=== PATIENT | male | born 1960 | race Caucasian/White ===

== ENCOUNTER → 2016-10-19 | Outpatient (CLI) | payer OTHER ==
--- NOTE | 2016-10-19 11:42 | DIAGNOSTIC IMAGING REPORT ---
RIGHT ANKLE 3 VIEWS HISTORY: PAIN IN RIGHT ANKLE AND JOINTS Right COMPARISON: None. FINDINGS: There is no fracture or dislocation. Medial soft tissue swelling. No underlying bony destruction. Mild vascular calcifications. A few punctate ossific densities at the medial malleolus consistent with old avulsion injuries. No radiopaque foreign bodies. IMPRESSION: Medial soft tissue swelling. No acute fractures. Electronically signed by: All Boone M.D. 10/19/2016 11:41 AM Dictated Date/Time: 10/19/2016 11:40 AM
== END | disposition home or self-care (01) ==
LOC: C.RADBC 11:21
PROVIDERS: ATTEND Family Medicine
DX: M25.571 Pain in right ankle and joints of right foot (principal)

== ENCOUNTER 2017-09-22 15:27 | Observation (INO) | payer OTHER ==
[~2017-09-22] VITALS: Ht 185.4 cm; Wt 123.1 kg
[2017-09-22] MEDS ORDERED: ASPIRIN 324 MG CHEW PO STA (16:27)
[2017-09-22] MEDS ORDERED: SODIUM CHLORIDE 0.9% 1000ML 1,000 ML IV ONE (16:30)
[2017-09-22] MEDS ORDERED: NITROGLYCERIN OINT 2% 1GM PACKET EXT ONE (16:30)
[2017-09-22] MEDS ORDERED: MULTTAB58 PO (16:32)
[2017-09-22 16:36] LABS: BASO % 0.1 %; BASO ABS # 0.01 K/uL (0-0.2); EOS % 0.9 %; EOS ABS # 0.11 K/uL (0-0.5); HEMATOCRIT 42.9 % (42-52); HEMOGLOBIN 15.9 g/dL (14.0-18.0); IG# 0.02 K/uL (0.00-0.02); LYMPH % 20.1 %; LYMPH ABS # 2.36 K/uL (1.2-3.4); MEAN CELL VOLUME 89.4 fL (80-100); MEAN CORPUSCULAR HEMOGLOBIN 33.1 pg (25-34); MEAN CORPUSCULAR HGB CONC 37.1 g/dl (32-36); MEAN PLATELET VOLUME 10.4 fL (7.4-10.4); MONO % 9.3 %; MONO ABS # 1.09 K/uL (0.11-0.59); NEUT % 69.4 %; NEUT ABS # 8.13 K/uL (1.4-6.5); PLATELET COUNT 224 K/uL (130-400); RED CELL DISTRIBUTION WIDTH CV 12.4 % (11.5-14.5); RED CELL DISTRIBUTION WIDTH SD 39.9 fL (36.4-46.3); WHITE BLOOD COUNT 11.72 K/uL (4.8-10.8)
--- NOTE | 2017-09-22 16:49 | DIAGNOSTIC IMAGING REPORT ---
CHEST ONE VIEW PORTABLE HISTORY: Atypical Chest pain COMPARISON: Chest 10/19/2014. FINDINGS: The lungs are clear. Cardiac silhouette is normal in size. No pleural effusions. No pneumothorax. IMPRESSION: No acute process. Electronically signed by: All Boone M.D. 09/22/2017 4:48 PM Dictated Date/Time: 09/22/2017 4:47 PM
[2017-09-22 16:52] LABS: ALBUMIN 4.4 gm/dl (3.4-5.0); CALCIUM 9.4 mg/dl (8.5-10.1); CREATININE 1.45 mg/dl (0.60-1.40); POTASSIUM 3.1 mmol/L (3.5-5.1)
[2017-09-22 17:03] LABS: CKMB 1.2 ng/ml (0.5-3.6); TOTAL PROTEIN 8.4 gm/dl (6.4-8.2)
[2017-09-22] MEDS ORDERED: OPTIRAY 320 IV PRN (17:30)
[2017-09-22] MEDS ORDERED: MoRPHine SULFATE 4 MG/ML 1 ML CARP\\VIAL ONE (18:19)
[2017-09-22] MEDS ORDERED: ONDANSETRON INJ 2 MG/ML 2 ML VIAL ONE (18:20)
--- NOTE | 2017-09-22 18:28 | DIAGNOSTIC IMAGING REPORT ---
CHEST CTA for PULMONARY ARTERIES CT DOSE: 746.24 mGy.cm HISTORY: Atypical chest pain. Short of breath. TECHNIQUE: Multiaxial CT images of the chest were performed following the intravenous administration of contrast to evaluate the pulmonary arteries. Maximal intensity projection images were also obtained. A dose lowering technique was utilized adhering to the principles of ALARA. COMPARISON STUDY: Chest 09/22/2017. FINDINGS: No pleural or pericardial effusions. The heart is top normal in size. Mild calcified plaque within the coronary arteries. The aorta is normal in course and caliber. No mediastinal or hilar lymphadenopathy. No suspicious lytic or blastic osseous lesions. No pneumothorax. The central airways are patent. The lungs are clear. IMPRESSION: No evidence for pulmonary embolus. Electronically signed by: All Boone M.D. 09/22/2017 6:27 PM Dictated Date/Time: 09/22/2017 6:17 PM
--- NOTE | 2017-09-22 20:02 | History and Physical ---
History & Physical Date & Time of Service: Sep 22, 2017 at 20:00 Chief Complaint: Chest Pain, Slight Shoulder Pain Primary Care Physician: Rinku Whaley DO History of Present Illness Source: patient, hospital records Episode of deep shoulder pain woke patient up from sleep last night. No CP/ palpitations/heart racing/diaphoresis. Pain not exacerbated with movement. Did not take any medications. Eventually went to sleep. Woke up and felt better. Laying on the couch earlier today when chest tightness/pain. Associated with palpitations and pleurisy. Pain felt with cough as well. Experienced some nausea , lightheaded/dizziness and numbness in hands bilaterally upon arrival to ED No changes in exercise tolerance. No pain radiation into arm, jaw or back. No fevers, chills sweats. No diaphoresis. No trauma, works out at the gym 5x/week - normal routine, no new changes. Intermittent history of indigestion over the last few weeks In the ED, received aspirin, nitro paste, zofran and morphine. Patient did feel better after this He otherwise denies fevers/chills, headaches, abdominal pain, lower extremity swelling or rashes. He is tolerating diet, ambulating without exacerbating symptoms, and voiding and stooling appropriately. No recent travel/long commutes ROS is unremarkable except as noted above. Past Medical/Surgical History GERD Facial paresthesia Family History Family history significant for cancers and CABG in uncle. Social History Smoking Status: Never Smoker (Recreational smoker 20 years ago x 1 month) Smokeless Tobacco Use: No Alcohol Use: occasionally (Weekends only - 1-2) Drug Use: none Marital Status: single Housing status: lives alone Occupational Status: employed Immunizations History of Influenza Vaccine: Yes History of Tetanus Vaccine?: Yes History of Pneumococcal: Yes History of Hepatitis B Vaccine: Yes Multi-Drug Resistant Organisms History of MDRO: No Allergies Coded Allergies: No Known Allergies (Unverified , 09/22/17) Home Medications Scheduled Multiple Vitamin (Multivitamin), 1 TAB PO DAILY Physical Exam Vital Signs Date Time Temp Pulse Resp B/P (MAP) Pulse Ox O2 Delivery O2 Flow Rate FiO2 09/22/17 19:34 66 16 144/87 97 Room Air 09/22/17 18:55 36.7 70 18 127/82 97 Room Air 09/22/17 17:41 58 22 152/90 100 Room Air 09/22/17 17:02 37.1 65 18 136/71 100 Room Air 09/22/17 16:40 99 Room Air 09/22/17 16:21 73 09/22/17 15:43 36.6 82 18 156/81 98 Room Air General Appearance: WD/WN, no apparent distress Head: normocephalic, atraumatic Eyes: normal inspection ENT: hearing grossly normal, pharynx normal Neck: supple, no adenopathy, thyroid normal, no JVD, no carotid bruits, trachea midline Respiratory/Chest: lungs clear, normal breath sounds, no respiratory distress, no accessory muscle use, + pertinent finding (CP with deep inspiration) Cardiovascular: regular rate, rhythm, no edema, no JVD, no murmur, normal peripheral pulses Abdomen/GI: normal bowel sounds, non tender, soft, no organomegaly Back: normal inspection, no CVA tenderness Extremities/Musculoskelatal: no calf tenderness, normal capillary refill, no pedal edema Neurologic/Psych: alert, normal mood/affect, oriented x 3 Skin: normal color, warm/dry, no rash Diagnostics Laboratory Results Results Past 24 Hours Test 09/22/17 16:30 09/22/17 16:34 09/22/17 17:19 Range/Units White Blood Count 11.72 4.8-10.8 K/uL Red Blood Count 4.80 4.7-6.1 M/uL Hemoglobin 15.9 14.0-18.0 g/dL Hematocrit 42.9 42-52 % Mean Corpuscular Volume 89.4 80-100 fL Mean Corpuscular Hemoglobin 33.1 25-34 pg Mean Corpuscular Hemoglobin Concent 37.1 32-36 g/dl Platelet Count 224 130-400 K/uL Mean Platelet Volume 10.4 7.4-10.4 fL Neutrophils (%) (Auto) 69.4 % Lymphocytes (%) (Auto) 20.1 % Monocytes (%) (Auto) 9.3 % Eosinophils (%) (Auto) 0.9 % Basophils (%) (Auto) 0.1 % Neutrophils # (Auto) 8.13 1.4-6.5 K/uL Lymphocytes # (Auto) 2.36 1.2-3.4 K/uL Monocytes # (Auto) 1.09 0.11-0.59 K/uL Eosinophils # (Auto) 0.11 0-0.5 K/uL Basophils # (Auto) 0.01 0-0.2 K/uL RDW Standard Deviation 39.9 36.4-46.3 fL RDW Coefficient of Variation 12.4 11.5-14.5 % Immature Granulocyte % (Auto) 0.2 % Immature Granulocyte # (Auto) 0.02 0.00-0.02 K/uL Sodium Level 137 136-145 mmol/L Potassium Level 3.1 3.5-5.1 mmol/L Chloride Level 103 98-107 mmol/L Carbon Dioxide Level 22 21-32 mmol/L Anion Gap 12.0 3-11 mmol/L Blood Urea Nitrogen 16 7-18 mg/dl Creatinine 1.45 0.60-1.40 mg/dl Est Creatinine Clear Calc Drug Dose 78.8 ml/min Estimated GFR () 62.0 Estimated GFR (Non- 53.5 BUN/Creatinine Ratio 11.0 10-20 Random Glucose 107 70-99 mg/dl Calcium Level 9.4 8.5-10.1 mg/dl Magnesium Level 1.8 1.8-2.4 mg/dl Total Bilirubin 1.3 0.2-1 mg/dl Aspartate Amino Transf (AST/SGOT) 20 15-37 U/L Alanine Aminotransferase (ALT/SGPT) 30 12-78 U/L Alkaline Phosphatase 46 45-117 U/L Total Creatine Kinase 266 39-308 U/L Creatine Kinase MB 1.2 0.5-3.6 ng/ml Creatine Kinase MB Ratio 0.5 0-3.0 Total Protein 8.4 6.4-8.2 gm/dl Albumin 4.4 3.4-5.0 gm/dl Globulin 4.0 2.5-4.0 gm/dl Albumin/Globulin Ratio 1.1 0.9-2 Lipase 108 73-393 U/L Thyroid Stimulating Hormone (TSH) 0.907 0.300-4.500 uIu/ml Bedside D-Dimer 296 0-450 ng/mlFEU Bedside Troponin I < 0.030 0-0.045 ng/ml Urine Color YELLOW Urine Appearance CLEAR CLEAR Urine pH >= 9.0 4.5-7.5 Urine Specific [place] 1.007 1.000-1.030 Urine Protein NEG NEG Urine Glucose (UA) NEG NEG Urine Ketones TRACE NEG Urine Occult Blood NEG NEG Urine Nitrite NEG NEG Urine Bilirubin NEG NEG Urine Urobilinogen NEG NEG Urine Leukocyte Esterase NEG NEG Diagnostic Radiology CHEST ONE VIEW PORTABLE HISTORY: Atypical Chest pain COMPARISON: Chest 10/19/2014. FINDINGS: The lungs are clear. Cardiac silhouette is normal in size. No pleural effusions. No pneumothorax. IMPRESSION: No acute process. CHEST CTA for PULMONARY ARTERIES CT DOSE: 746.24 mGy.cm HISTORY: Atypical chest pain. Short of breath. TECHNIQUE: Multiaxial CT images of the chest were performed following the intravenous administration of contrast to evaluate the pulmonary arteries. Maximal intensity projection images were also obtained. A dose lowering technique was utilized adhering to the principles of ALARA. COMPARISON STUDY: Chest 09/22/2017. FINDINGS: No pleural or pericardial effusions. The heart is top normal in size. Mild calcified plaque within the coronary arteries. The aorta is normal in course and caliber. No mediastinal or hilar lymphadenopathy. No suspicious lytic or blastic osseous lesions. No pneumothorax. The central airways are patent. The lungs are clear. IMPRESSION: No evidence for pulmonary embolus. ABDOMEN AND PELVIS CT WITHOUT CONTRAST CT DOSE: 1404.91 mGy.cm HISTORY: ERROL, generalized abdominal PAIN, LEFT SHOULDER PAIN TECHNIQUE: Multiaxial CT images of the abdomen and pelvis were performed without contrast. A dose lowering technique was utilized adhering to the principles of ALARA. COMPARISON STUDY: Chest CTA 09/22/2017. FINDINGS: The lung bases are clear. No fractures within the visualized osseous structures. Small fat-containing umbilical hernia. Small fat-containing bilateral inguinal hernias. A 13 mm hypodense lesion within the right hepatic lobe. This is incompletely characterized on this noncontrast study but favors a cyst. The unenhanced gallbladder, spleen, adrenal glands, pancreas, and kidneys are unremarkable. Residual intravenous contrast within the urinary system. No hydronephrosis. No bladder wall thickening. The bladder is mildly distended. No retroperitoneal lymphadenopathy. Suboptimal evaluation for bowel pathology due to the lack of intravenous and oral contrast. However, there is no definite bowel wall thickening or obstruction. Colonic diverticulosis. No evidence for diverticulitis. Normal appendix. IMPRESSION: 1. No bowel wall thickening or obstruction. 2. Normal appendix. 3. Colonic diverticulosis. 4. Residual contrast within the urinary system/bladder from the prior chest CTA. The bladder is mildly distended. CXR normal EKG Normal sinus rhythm with PVC HR 76, QTc 488 Impression Assessment and Plan 56 M with no significant personal or family history of cardiac issues presents to ED for 2 episodes of CP at rest and admitted for CP rule out Chest pain - Tele obs - Serial trops - Echo - Aspirin - EKG PRN CP Hypokalemia - 40 mEq Kcl now, 20 mEq BID x 4 doses starting tomorrow - Trend BMP Elevated creatinine - No previous BMP to compare - Encourage PO fluid intake - Trend BMP in AM - CT abd/pelv negative for kidney abnormalities. If BMP remains elevated, consider spot urine microalbumin and/or renal U/S GERD - Ranitidine 150mg BID PRN indigestion VTE ppx - SCDs Attending addendum: I have physically seen this patient, have supervised the medical residents activities, and agree with the H&P unless as otherwise noted. Assessment and Plan: Chest pain/neck pain-- The patient will be admitted to telemetry for serial cardiac enzymes, serial EKG's, cardiac rhythm monitoring and a 2-D echocardiogram with Dopplers. Aspirin 81 mg daily ERROL/hypokalemia-- GERD potassium chloride 40 mEq by mouth now, then 20 mEq by mouth twice a day 4 doses Encourage fluid intake Advised increase potassium containing foods Repeat BMP and magnesium level in the a.m. Level of Care Telemetry Advanced Directives Existing Advance Directive: No Existing Living Will: Yes Existing Power of Ruffling Hemmer Automatic: No Existing Health Care Proxy: No Resuscitation Status FULL RESUSCITATION VTE Prophylaxis VTE Risk Assessment Done? Y/N: Yes Risk Level: Moderate Given or contraindicated: SCD's Social Service Consult None Apply Note Total Time: Critical Care 30 - 74 minutes Resident Tracking Resident Involvement: Resident Care Provided Care Provided: Adult Hospital Medicine
[2017-09-22] MEDS ORDERED: POTASSIUM CHLORIDE 20 MEQ TABCR PO STA (20:34)
[2017-09-22] MEDS ORDERED: MAGNESIUM HYDROXIDE SUSP 30 ML UDC PO PRN (20:45)
[2017-09-22] MEDS ORDERED: ACETAMINOPHEN 325 MG TAB PO PRN (20:45)
[2017-09-22] MEDS ORDERED: RANITIDINE HCL 150 MG TAB PO PRN (20:45)
[2017-09-22] MEDS ORDERED: ONDANSETRON INJ 2 MG/ML 2 ML VIAL IV PRN (20:45)
[2017-09-22] MEDS ORDERED: NITROGLYCERIN 0.4 MG SL PER TAB CHARGE SL PRN (20:45)
[2017-09-22] MEDS ORDERED: POLYETHYLENE (MIRALAX) 17 GM PACK PO PRN (20:45)
[2017-09-22] MEDS ORDERED: ALUMINUM/MAGNESIUM/SIMETH (MAALOX MAX) 30 ML UDC PO PRN (20:45)
[2017-09-22] MEDS ORDERED: POTASSIUM CHLORIDE 10 MEQ TABCR ONE (21:02)
[2017-09-22] MEDS ORDERED: KETOROLAC TROMETHAMINE 30 MG/ML VIAL ONE ×2 (21:08→21:21)
[2017-09-22] MEDS ORDERED: IV FLUIDS COMPLETED PRN (21:45)
[2017-09-22 21:50] VITALS: BP 138/78; PULSE 64; TEMP 37.1; O2SAT 97; Ht 185.4 cm; Wt 123.1 kg
--- NOTE | 2017-09-22 22:09 | DIAGNOSTIC IMAGING REPORT ---
ABDOMEN AND PELVIS CT WITHOUT CONTRAST CT DOSE: 1404.91 mGy.cm HISTORY: ERROL, generalized abdominal PAIN, LEFT SHOULDER PAIN TECHNIQUE: Multiaxial CT images of the abdomen and pelvis were performed without contrast. A dose lowering technique was utilized adhering to the principles of ALARA. COMPARISON STUDY: Chest CTA 09/22/2017. FINDINGS: The lung bases are clear. No fractures within the visualized osseous structures. Small fat-containing umbilical hernia. Small fat-containing bilateral inguinal hernias. A 13 mm hypodense lesion within the right hepatic lobe. This is incompletely characterized on this noncontrast study but favors a cyst. The unenhanced gallbladder, spleen, adrenal glands, pancreas, and kidneys are unremarkable. Residual intravenous contrast within the urinary system. No hydronephrosis. No bladder wall thickening. The bladder is mildly distended. No retroperitoneal lymphadenopathy. Suboptimal evaluation for bowel pathology due to the lack of intravenous and oral contrast. However, there is no definite bowel wall thickening or obstruction. Colonic diverticulosis. No evidence for diverticulitis. Normal appendix. IMPRESSION: 1. No bowel wall thickening or obstruction. 2. Normal appendix. 3. Colonic diverticulosis. 4. Residual contrast within the urinary system/bladder from the prior chest CTA. The bladder is mildly distended. Electronically signed by: All Boone M.D. 09/22/2017 10:08 PM Dictated Date/Time: 09/22/2017 10:00 PM
[2017-09-23 00:06] VITALS: BP 116/66; PULSE 48; TEMP 36.7; O2SAT 99
--- NOTE | 2017-09-23 00:19 | EMERGENCY ROOM VISIT NOTE ---
History First contact with patient: 16:20 Chief Complaint: CHEST PAIN Stated Complaint: CHEST PAIN Nursing Triage Summary: patient c/o left sided chest pain that radiates to left shoulder since last night around midnight. pain subsided in AM and but returned around noon. patient states he is slightly SOB with chest pain. denies cardiac hx History of Present Illness The patient is a 56 year old male who presents to the Emergency Room with complaints of left-sided chest pain radiating into his left shoulder that began around 15 or 16 hours ago. The patient states that he was sleeping at the time and awoke with the discomfort. The pain did not appear to improve or worsen with movement of his arm or shoulder. Pain described as a burning/sharp pain that was initially rated a 6/10. He was able to rest, and the pain did subside , and he was able to return to sleep. He states that his symptoms returned around 4 hours ago, however this time he also had some shortness of breath and felt like he had some racing of his heart. The patient does not report a history of chronic medical disease. He does not take medication on a daily basis. He does not report significant family history of chronic disease. He states his discomfort now is 8/10. He does not identify aggravating or alleviating factors. He does work out 5 days a week at the gym, and has not had change in activity or symptoms like this in the past. Review of Systems More than 10 systems were reviewed and otherwise negative with the exception of history of present illness. Past Medical/Surgical History Medical Problems: (1) Chest pain Family History No pertinent family history Social History Smoking Status: Never Smoker Smokeless Tobacco Use: No Occupation Status: employed Current/Historical Medications Scheduled Multiple Vitamin (Multivitamin), 1 TAB PO DAILY Physical Exam Vital Signs Date Time Temp Pulse Resp B/P (MAP) Pulse Ox O2 Delivery O2 Flow Rate FiO2 09/22/17 20:30 74 09/22/17 19:34 66 16 144/87 97 Room Air 09/22/17 18:55 36.7 70 18 127/82 97 Room Air 09/22/17 17:41 58 22 152/90 100 Room Air 09/22/17 17:02 37.1 65 18 136/71 100 Room Air 09/22/17 16:40 99 Room Air 09/22/17 16:21 73 09/22/17 15:43 36.6 82 18 156/81 98 Room Air Physical Exam VITALS: Vitals are noted on the nurse's note and reviewed by myself. Vital signs stable. GENERAL: Well-developed, well-nourished, white male, who is in no acute distress and resting comfortably. Patient is cooperative with the examination. NECK: Supple without nuchal rigidity. No lymphadenopathy. No thyromegaly. Cervical spine is nontender. HEART: Regular rate and rhythm without murmurs gallops or rubs. LUNGS: Clear to auscultation bilaterally without wheezes, rales or rhonchi. No retractions or accessory muscle use. MUSCULOSKELETAL: No muscle atrophy, erythema, or edema noted. Full range of motion without joint tenderness in all extremities. No tenderness to palpation throughout the chest wall or left shoulder area NEURO: Patient was alert and oriented to person place and time. CN II through XII grossly intact. Medical Decision & Procedures ER Provider Diagnostic Interpretation: CHEST ONE VIEW PORTABLE HISTORY: Atypical Chest pain COMPARISON: Chest 10/19/2014. FINDINGS: The lungs are clear. Cardiac silhouette is normal in size. No pleural effusions. No pneumothorax. IMPRESSION: No acute process. CHEST CTA for PULMONARY ARTERIES CT DOSE: 746.24 mGy.cm HISTORY: Atypical chest pain. Short of breath. TECHNIQUE: Multiaxial CT images of the chest were performed following the intravenous administration of contrast to evaluate the pulmonary arteries. Maximal intensity projection images were also obtained. A dose lowering technique was utilized adhering to the principles of ALARA. COMPARISON STUDY: Chest 09/22/2017. FINDINGS: No pleural or pericardial effusions. The heart is top normal in size. Mild calcified plaque within the coronary arteries. The aorta is normal in course and caliber. No mediastinal or hilar lymphadenopathy. No suspicious lytic or blastic osseous lesions. No pneumothorax. The central airways are patent. The lungs are clear. IMPRESSION: No evidence for pulmonary embolus. Laboratory Results 09/22/17 16:30 Red Blood Count 4.80, Mean Corpuscular Volume 89.4, Mean Corpuscular Hemoglobin 33.1, Mean Corpuscular Hemoglobin Concent 37.1, Mean Platelet Volume 10.4, Neutrophils (%) (Auto) 69.4, Lymphocytes (%) (Auto) 20.1, Monocytes (%) (Auto) 9.3, Eosinophils (%) (Auto) 0.9, Basophils (%) (Auto) 0.1, Neutrophils # (Auto) 8.13, Lymphocytes # (Auto) 2.36, Monocytes # (Auto) 1.09, Eosinophils # (Auto) 0.11, Basophils # (Auto) 0.01 09/22/17 16:30 Test 09/22/17 16:30 09/22/17 16:34 09/22/17 17:19 White Blood Count 11.72 K/uL (4.8-10.8) Red Blood Count 4.80 M/uL (4.7-6.1) Hemoglobin 15.9 g/dL (14.0-18.0) Hematocrit 42.9 % (42-52) Mean Corpuscular Volume 89.4 fL (80-100) Mean Corpuscular Hemoglobin 33.1 pg (25-34) Mean Corpuscular Hemoglobin Concent 37.1 g/dl (32-36) Platelet Count 224 K/uL (130-400) Mean Platelet Volume 10.4 fL (7.4-10.4) Neutrophils (%) (Auto) 69.4 % Lymphocytes (%) (Auto) 20.1 % Monocytes (%) (Auto) 9.3 % Eosinophils (%) (Auto) 0.9 % Basophils (%) (Auto) 0.1 % Neutrophils # (Auto) 8.13 K/uL (1.4-6.5) Lymphocytes # (Auto) 2.36 K/uL (1.2-3.4) Monocytes # (Auto) 1.09 K/uL (0.11-0.59) Eosinophils # (Auto) 0.11 K/uL (0-0.5) Basophils # (Auto) 0.01 K/uL (0-0.2) RDW Standard Deviation 39.9 fL (36.4-46.3) RDW Coefficient of Variation 12.4 % (11.5-14.5) Immature Granulocyte % (Auto) 0.2 % Immature Granulocyte # (Auto) 0.02 K/uL (0.00-0.02) Anion Gap 12.0 mmol/L (3-11) Est Creatinine Clear Calc Drug Dose 78.8 ml/min Estimated GFR () 62.0 Estimated GFR (Non- 53.5 BUN/Creatinine Ratio 11.0 (10-20) Calcium Level 9.4 mg/dl (8.5-10.1) Magnesium Level 1.8 mg/dl (1.8-2.4) Total Bilirubin 1.3 mg/dl (0.2-1) Aspartate Amino Transf (AST/SGOT) 20 U/L (15-37) Alanine Aminotransferase (ALT/SGPT) 30 U/L (12-78) Alkaline Phosphatase 46 U/L (45-117) Total Creatine Kinase 266 U/L (39-308) Creatine Kinase MB 1.2 ng/ml (0.5-3.6) Creatine Kinase MB Ratio 0.5 (0-3.0) Total Protein 8.4 gm/dl (6.4-8.2) Albumin 4.4 gm/dl (3.4-5.0) Globulin 4.0 gm/dl (2.5-4.0) Albumin/Globulin Ratio 1.1 (0.9-2) Lipase 108 U/L (73-393) Thyroid Stimulating Hormone (TSH) 0.907 uIu/ml (0.300-4.500) Bedside D-Dimer 296 ng/mlFEU (0-450) Bedside Troponin I < 0.030 ng/ml (0-0.045) Urine Color YELLOW Urine Appearance CLEAR (CLEAR) Urine pH >= 9.0 (4.5-7.5) Urine Specific [place] 1.007 (1.000-1.030) Urine Protein NEG (NEG) Urine Glucose (UA) NEG (NEG) Urine Ketones TRACE (NEG) Urine Occult Blood NEG (NEG) Urine Nitrite NEG (NEG) Urine Bilirubin NEG (NEG) Urine Urobilinogen NEG (NEG) Urine Leukocyte Esterase NEG (NEG) Medications Administered Medications (Trade) Dose Ordered Sig/Charisse Route Start Time Stop Time Status Last Admin Dose Admin Aspirin (Aspirin Chew) 324 mg NOW STAT PO 09/22/17 16:27 09/22/17 16:30 DC 09/22/17 16:46 324 MG Nitroglycerin (Nitroglycerin 2% Oint) 1 inch NOW ONCE EXT 09/22/17 16:30 09/22/17 16:31 DC 09/22/17 16:46 1 INCH Sodium Chloride 1,000 ml @ 999 mls/hr Q1H1M ONCE IV 09/22/17 16:30 09/22/17 17:30 DC 09/22/17 16:47 999 MLS/HR Morphine Sulfate (MoRPHine SULFATE INJ) 4 mg STK-MED ONCE .ROUTE 09/22/17 18:19 09/22/17 18:20 DC 09/22/17 18:23 4 MG Ondansetron HCl (Zofran Inj) 4 mg STK-MED ONCE .ROUTE 09/22/17 18:20 09/22/17 18:21 DC 09/22/17 18:22 4 MG ED Course Physical exam and history were performed. Nursing notes, EMR, and Medication List were personally reviewed. Patient appears to have atypical left-sided chest pain radiating into his left side shoulder. The patient identifies the pain primarily in the anterior aspect of the left shoulder and into his neck. EKG was performed and read by myself as normal sinus rhythm without acute ST elevation. IV access was established and labs were obtained. Portable chest x-ray does not show significant acute findings. He is placed on the industrial safety and health specialist. The patient was given aspirin and Nitropaste. The patient's blood work is as above and was reviewed. He has a very minimally elevated white blood cell count but no significant anemia, bandemia, or gross electrolyte imbalance. Lipase and transaminases are nondiagnostic. Glucose is normal. He does have elevated renal function, however we do not have historical labs for comparison. The patient's d-dimer and troponin 1 are both negative. On reevaluation the patient had only minimal improvement with aspirin and nitroglycerin. Because of this I did elect to perform a CT scan with contrast of the chest. CT scan does not show obvious etiology of the patient's symptoms. Because of this I now elect to give him morphine and Zofran for pain control. On further reevaluation the patient now feels much better from a pain standpoint. His pain does not appear to be distinctly musculoskeletal in nature , as palpation and range of motion does not appear to alter the discomfort. The patient does not regularly follow with his PCP, and is usually otherwise healthy. I have concern that his symptoms may represent unstable angina. I discussed the case with both my attending physician, and with the on-call hospitalist. The hospitalist agreed to evaluate the patient here in the department for further care and management. Please see their dictation for further patient course, plan, and disposition. The chart was completed utilizing [employer] Speech Voice Recognition Software. Grammatical errors, random word insertions, pronoun errors, and incomplete sentences are an occasional consequence of this system due to software limitations, ambient noise, and hardware issues. Any formal questions or concerns about the content, text, or information contained within the body of this dictation should be directly addressed to the provider for clarification. . Medical Decision Differential diagnosis includes, but is not limited to: Myocardial infarction, dysrhythmia, pericarditis, pneumothorax, aortic aneurysm/dissection, DVT/PE, anxiety, GERD, PUD, electrolyte imbalance, thyroid disorder, pneumonia, bronchitis, pancreatitis, and others Impression Primary Impression: Chest pain Departure Information Dispostion Still a Patient Condition FAIR Referrals Rinku Whaley DO (PCP) Forms Call Back Authorization, HOME CARE DOCUMENTATION FORM, IMPORTANT VISIT INFORMATION Patient Instructions [facility] Problem Qualifiers Primary Impression: Chest pain Chest pain type: unspecified Qualified Codes: R07.9 - Chest pain, unspecified
[2017-09-23 02:26] LABS: HEMATOCRIT 38.5 % (42-52); HEMOGLOBIN 13.8 g/dL (14.0-18.0); MEAN CORPUSCULAR HEMOGLOBIN 32.6 pg (25-34); MEAN CORPUSCULAR HGB CONC 35.8 g/dl (32-36); MEAN PLATELET VOLUME 10.2 fL (7.4-10.4); PLATELET COUNT 178 K/uL (130-400); RED CELL DISTRIBUTION WIDTH CV 12.6 % (11.5-14.5); RED CELL DISTRIBUTION WIDTH SD 41.6 fL (36.4-46.3); WHITE BLOOD COUNT 7.59 K/uL (4.8-10.8)
[2017-09-23 03:08] LABS: CALCIUM 8.6 mg/dl (8.5-10.1); CREATININE 1.25 mg/dl (0.60-1.40); POTASSIUM 3.7 mmol/L (3.5-5.1)
[2017-09-23 03:25] VITALS: BP 110/65; PULSE 53; TEMP 36.8; O2SAT 98
[2017-09-23 06:21] VITALS: BP 118/71; PULSE 51; O2SAT 97
[2017-09-23 07:37] VITALS: BP 110/66; PULSE 45; TEMP 36.7; O2SAT 98
--- NOTE | 2017-09-23 08:31 | ECHOCARDIOGRAM REPORT ---
*NOTICE TO RECEIVING LIBERTARIAN AGENCY This information is strictly Confidential and protected under [place] law. [place] law prohibits you from making any further disclosure of this information unless further disclosure is expressly permitted by the written consent of the person to whom it pertains or is authorized by law. A general authorization for the release of medical or other information is not sufficient for this purpose. Hospital accepts no responsibility if the information is made available to any other person, INCLUDING THE PATIENT. Interpretation Summary * Name: CARL WAGNER Study Date: 09/23/2017 06:39 AM BP: 110/65 mmHg * Patient Location: C.2T\S\E215\S\1 HR: 45 * : 1960 (M/d/yyyy) Gender: Male Height: 73 in * Age: 56 yrs Ethnicity: CA Weight: 275 lb * Ordering Physician: Yennifer Webster. * Referring Physician: Self, Referred * Performed By: Rhonda Larsen RCS * * Reason For Study: Chest Pain * BSA: 2.5 m2 * -- Conclusions -- * Left ventricular systolic function is normal. * Borderline left atrial enlargement. * Mild aortic regurgitation. * Mild aortic root dilatation. Procedure Details * A complete two-dimensional transthoracic echocardiogram was performed (2D, M-mode, Doppler and color flow Doppler). Left Ventricle * The left ventricle is normal in size. * There is normal left ventricular wall thickness. * Left ventricular systolic function is normal. * Ejection Fraction = 55-60%. * The left ventricular wall motion is normal. Right Ventricle * The right ventricle is normal in size and function. * The right ventricular systolic function is normal as assessed by tricuspid annular plane systolic excursion (TAPSE) (normal >1.5 cm). Atria * Borderline left atrial enlargement. * Right atrial size is normal. Mitral Valve * The mitral valve leaflets appear normal. There is no evidence of stenosis, fluttering, or prolapse. * Significant mitral regurgitation is absent. Tricuspid Valve * The tricuspid valve is not well visualized, but is grossly normal. * Significant tricuspid regurgitation is absent. Aortic Valve * The aortic valve is normal in structure and function. * No hemodynamically significant valvular aortic stenosis. * Mild aortic regurgitation. Great Vessels * Mild aortic root dilatation. Pericardium/Pleural * There is no pericardial effusion. MMode 2D Measurements and Calculations IVSd 1.1 cm IVSs 1.6 cm LVIDd 4.3 cm LVIDs 2.7 cm LVPWd 1.1 cm LVPWs 1.6 cm IVS/LVPW 1.0 FS 36.5 % EDV(Teich) 82.0 ml ESV(Teich) 27.4 ml EF(Teich) 66.5 % EDV(cubed) 78.2 ml ESV(cubed) 20.0 ml EF(cubed) 74.4 % % IVS thick 44.0 % % LVPW thick 45.0 % LV mass(C)d 156.3 grams LV mass(C)dI 63.5 grams/m\S\2 LV mass(C)s 148.3 grams LV mass(C)sI 60.2 grams/m\S\2 CO(Teich) 2.3 l/min CI(Teich) 0.95 l/min/m\S\2 SV(Teich) 54.5 ml SI(Teich) 22.1 ml/m\S\2 CO(cubed) 2.5 l/min CI(cubed) 1.0 l/min/m\S\2 SV(cubed) 58.1 ml SI(cubed) 23.6 ml/m\S\2 Ao root diam 4.2 cm Ao root area 14.0 cm\S\2 ACS 2.0 cm LA dimension 4.0 cm asc Aorta Diam 3.8 cm LA/Ao 0.95 LVAd ap4 45.7 cm\S\2 LVLd ap4 9.9 cm EDV(MOD-sp4) 173.0 ml LVAs ap4 25.0 cm\S\2 LVLs ap4 8.2 cm ESV(MOD-sp4) 65.7 ml EF(MOD-sp4) 62.0 % LVAd ap2 53.8 cm\S\2 LVLd ap2 11.0 cm EDV(MOD-sp2) 223.0 ml LVAs ap2 26.5 cm\S\2 LVLs ap2 8.1 cm ESV(MOD-sp2) 73.8 ml EF(MOD-sp2) 66.9 % CO(MOD-sp4) 4.6 l/min CI(MOD-sp4) 1.9 l/min/m\S\2 SV(MOD-sp4) 107.3 ml SI(MOD-sp4) 43.6 ml/m\S\2 CO(MOD-sp2) 6.4 l/min CI(MOD-sp2) 2.6 l/min/m\S\2 SV(MOD-sp2) 149.2 ml SI(MOD-sp2) 60.6 ml/m\S\2 Doppler Measurements and Calculations MV E max orestes 56.3 cm/sec MV A max orestes 35.0 cm/sec MV E/A 1.6 MV P1/2t max orestes 62.9 cm/sec MV P1/2t 94.2 msec MVA(P1/2t) 2.3 cm\S\2 MV dec slope 195.5 cm/sec\S\2 MV dec time 0.26 sec Ao V2 max 145.8 cm/sec Ao max PG 8.5 mmHg Ao max PG (full) 3.7 mmHg AI max orestes 362.5 cm/sec AI max PG 52.6 mmHg AI dec slope 140.9 cm/sec\S\2 AI P1/2t 753.4 msec LV V1 max PG 4.8 mmHg LV V1 max 109.1 cm/sec PA V2 max 90.2 cm/sec PA max PG 3.3 mmHg PI max orestes 152.2 cm/sec PI max PG 9.3 mmHg PI dec slope 86.6 cm/sec\S\2 PI P1/2t 515.0 msec
[2017-09-23] MEDS ORDERED: ASPIRIN 81 MG ECTAB PO SCH (09:00)
[2017-09-23] MEDS ORDERED: POTASSIUM CHLORIDE 20 MEQ TABCR PO SCH (09:00)
[2017-09-23 11:50] VITALS: BP 130/73; PULSE 47; TEMP 36.6; O2SAT 100
--- NOTE | 2017-09-23 12:25 | Cardiology Consultation ---
Cardiology Consultation Date of Consultation: Sep 23, 2017. Requesting Physician: Angela Reason for Consultation: Bradycardia, chest pain Pt evaluation today including: conversation w/ patient, physical exam, chart review, lab review, review of studies, review of inpatient medication list, conversation w/ attending History of Present Illness The patient is a 56-year-old gentleman without a known history of cardiac disease who experienced several episodes pain over the past 24 hours. Initial episode involved a severe discomfort at the base of the left neck and left shoulder. This is described as a searing or stabbing pain. The AA symptoms themselves lasted for about 30 minutes and finally resolved with a change in position. Patient was sleeping at the time and woke up with the symptoms. He eventually found a comfortable position on the floor was able to get back to sleep. Following morning the patient woke up but he had more generalized pain this involve symptoms left chest discomfort left back discomfort and left neck discomfort. This was pleuritic in nature. He did not have any associated dyspnea. He has not have any nausea or vomiting. Did not notice any diaphoresis. There was no associated dizziness or lightheadedness. The symptoms lasted most of the day and eventually he also had recurrence of the severe left shoulder discomfort. Based on the recurrent nature of his symptoms he sought medical attention at [facility]. Currently he has no symptoms. It is unclear what eventually resolved his pain. He was administered nitroglycerin with some relief. He cannot recall similar episodes of pain in the past. In general he is an active individual who was accustomed to exercising up to 5 times per week. This generally involves weight training and some warm ups on the treadmill. He does not appear to perform vigorous aerobic activity. Does not report symptoms of dizziness or lightheadedness. He is generally not aware of any palpitations or rapid heartbeats. He has no symptoms consistent with orthostatic hypotension. He cannot ever recall the syncopal episode. Past Medical/Surgical History Remote history of tobacco abuse Past surgical history: None Family History Patient reports having an uncle with possible premature coronary disease. No other premature coronary disease in the family. Social History Smoking Status: Never Smoker History of Alcohol Use: No Currently employed as a software sales consultant Review of Systems No recent constitutional symptoms such as fevers or chills. No swelling in lower extremities. No reduced exercise tolerance recently. All Other Systems: Reviewed and Negative Allergies Coded Allergies: No Known Allergies (Unverified , 09/22/17) Medications Current Inpatient Medications Medications (Trade) Dose Ordered Sig/Charisse Route Start Time Stop Time Status Last Admin Dose Admin Ioversol (Optiray 320) 100 ml UD PRN IV 09/22/17 17:30 09/26/17 17:29 Acetaminophen (Tylenol Tab) 650 mg Q4H PRN PO 09/22/17 20:45 10/22/17 20:44 09/23/17 06:17 650 MG Al Hydrox/Mg Hydrox/Simethicone (Maalox Max Susp) 15 ml Q4H PRN PO 09/22/17 20:45 10/22/17 20:44 Magnesium Hydroxide (Milk Of Magnesia Susp) 30 ml Q12H PRN PO 09/22/17 20:45 10/22/17 20:44 Ondansetron HCl (Zofran Inj) 4 mg Q6H PRN IV 09/22/17 20:45 10/22/17 20:44 Nitroglycerin (Nitrostat Tab) 0.4 mg UD PRN SL 09/22/17 20:45 10/22/17 20:44 09/23/17 06:12 0.4 MG Aspirin (Ecotrin Tab) 81 mg QAM PO 09/23/17 09:00 10/23/17 08:59 09/23/17 07:37 81 MG Polyethylene (Miralax Powder Packet) 17 gm DAILY PRN PO 09/22/17 20:45 10/22/17 20:44 Ranitidine HCl (zANTac TAB) 150 mg BID PRN PO 09/22/17 20:45 10/22/17 20:44 Potassium Chloride (Klor-Con Tab) 20 meq BID PO 09/23/17 09:00 09/24/17 21:01 09/23/17 07:37 20 MEQ Miscellaneous (Iv Fluids Completed) 1 ea PRN PRN N/A 09/22/17 21:45 09/22/18 21:44 Physical Exam Vital Signs Past 12 Hours Date Time Temp Pulse Resp B/P (MAP) Pulse Ox O2 Delivery O2 Flow Rate FiO2 09/23/17 12:00 Room Air 09/23/17 11:50 36.6 47 18 130/73 (92) 100 Room Air 09/23/17 08:00 Room Air 09/23/17 07:37 36.7 45 19 110/66 (81) 98 Room Air 09/23/17 06:21 51 18 118/71 (87) 97 09/23/17 04:00 Room Air 09/23/17 03:25 36.8 53 17 110/65 (80) 98 Room Air The patient is alert and oriented. Mood and affect appeared normal. He answered all questions appropriately. HEENT: Pupils are equal and reactive to light and accommodation. Extraocular movements are intact. The sclerae are anicteric. Neuro: Cranial nerves intact Neck: Patient's neck is supple. He has palpable carotid pulses bilaterally without bruits on auscultation. There is no evidence of jugular venous distention. The thyroid is not enlarged. Lungs: Clear to auscultation bilaterally. He has good air movement without use of accessory muscles. No rales wheezes or rhonchi. Cardiac: Heart demonstrates a regular rate and rhythm. Normal S1 and S2. No murmurs on examination. Chest: No tenderness to palpation along the trapezius or chest. Pulses: The patient has palpable radial pulses bilaterally that are equal in intensity Extremities: There was no evidence of hypoperfusion. There is no cyanosis or clubbing. There is no edema. Skin: I did not appreciate any rashes on examination today. Data Laboratory Results: Last 24 Hours Test 09/22/17 16:30 09/22/17 16:34 09/22/17 17:19 09/22/17 20:46 White Blood Count 11.72 K/uL Red Blood Count 4.80 M/uL Hemoglobin 15.9 g/dL Hematocrit 42.9 % Mean Corpuscular Volume 89.4 fL Mean Corpuscular Hemoglobin 33.1 pg Mean Corpuscular Hemoglobin Concent 37.1 g/dl Platelet Count 224 K/uL Mean Platelet Volume 10.4 fL Neutrophils (%) (Auto) 69.4 % Lymphocytes (%) (Auto) 20.1 % Monocytes (%) (Auto) 9.3 % Eosinophils (%) (Auto) 0.9 % Basophils (%) (Auto) 0.1 % Neutrophils # (Auto) 8.13 K/uL Lymphocytes # (Auto) 2.36 K/uL Monocytes # (Auto) 1.09 K/uL Eosinophils # (Auto) 0.11 K/uL Basophils # (Auto) 0.01 K/uL RDW Standard Deviation 39.9 fL RDW Coefficient of Variation 12.4 % Immature Granulocyte % (Auto) 0.2 % Immature Granulocyte # (Auto) 0.02 K/uL Sodium Level 137 mmol/L Potassium Level 3.1 mmol/L Chloride Level 103 mmol/L Carbon Dioxide Level 22 mmol/L Anion Gap 12.0 mmol/L Blood Urea Nitrogen 16 mg/dl Creatinine 1.45 mg/dl Est Creatinine Clear Calc Drug Dose 78.8 ml/min Estimated GFR () 62.0 Estimated GFR (Non- 53.5 BUN/Creatinine Ratio 11.0 Random Glucose 107 mg/dl Calcium Level 9.4 mg/dl Magnesium Level 1.8 mg/dl Total Bilirubin 1.3 mg/dl Aspartate Amino Transf (AST/SGOT) 20 U/L Alanine Aminotransferase (ALT/SGPT) 30 U/L Alkaline Phosphatase 46 U/L Total Creatine Kinase 266 U/L Creatine Kinase MB 1.2 ng/ml Creatine Kinase MB Ratio 0.5 Total Protein 8.4 gm/dl Albumin 4.4 gm/dl Globulin 4.0 gm/dl Albumin/Globulin Ratio 1.1 Lipase 108 U/L Thyroid Stimulating Hormone (TSH) 0.907 uIu/ml Hepatitis C Antibody Screen NEG Bedside D-Dimer 296 ng/mlFEU Bedside Troponin I < 0.030 ng/ml Urine Color YELLOW Urine Appearance CLEAR Urine pH >= 9.0 Urine Specific Eldridge 1.007 Urine Protein NEG Urine Glucose (UA) NEG Urine Ketones TRACE Urine Occult Blood NEG Urine Nitrite NEG Urine Bilirubin NEG Urine Urobilinogen NEG Urine Leukocyte Esterase NEG Troponin I < 0.015 ng/ml Test 09/23/17 02:16 09/23/17 11:08 White Blood Count 7.59 K/uL Red Blood Count 4.23 M/uL Hemoglobin 13.8 g/dL Hematocrit 38.5 % Mean Corpuscular Volume 91.0 fL Mean Corpuscular Hemoglobin 32.6 pg Mean Corpuscular Hemoglobin Concent 35.8 g/dl RDW Standard Deviation 41.6 fL RDW Coefficient of Variation 12.6 % Platelet Count 178 K/uL Mean Platelet Volume 10.2 fL Sodium Level 139 mmol/L Potassium Level 3.7 mmol/L Chloride Level 105 mmol/L Carbon Dioxide Level 28 mmol/L Anion Gap 6.0 mmol/L Blood Urea Nitrogen 15 mg/dl Creatinine 1.25 mg/dl Est Creatinine Clear Calc Drug Dose 91.2 ml/min Estimated GFR () 74.1 Estimated GFR (Non- 64.0 BUN/Creatinine Ratio 11.8 Random Glucose 104 mg/dl Calcium Level 8.6 mg/dl Troponin I < 0.015 ng/ml Triglycerides Level 139 mg/dl Cholesterol Level 172 mg/dl HDL Cholesterol 44 mg/dl LDL Cholesterol, Calculated 100 mg/dl VLDL Cholesterol, Calculated 28 mg/dl Cholesterol/HDL Ratio 3.9 Lyme Disease IgG Antibody NEG Lyme Disease IgM Antibody NEG Imaging: CT of the chest and abdomen did not reveal any notable abnormalities. No evidence of pulmonary embolus. Chest x-ray was normal. No acute process. EKG: Telemetry reviewed: Some sinus bradycardia with 1 episode of a junctional escape beat Echocardiogram performed today revealed some mild aortic regurgitation and mild aortic root dilation with a measurement of 4.2 centimeters Assessment & Plan 1. Chest pain: Patient had mostly left neck and shoulder pain initially. He eventually did developed some chest discomfort which was fairly mild in nature and pleuritic. The extended duration of his symptoms and the absence of associated biomarker elevation suggests that this was not cardiac in nature. There were no other objective findings to suggest ischemia. His EKG did not demonstrate any ST abnormalities. Echocardiogram demonstrates normal wall motion. He is an active individual who was accustomed to exercising regularly and does not have symptoms of exertional chest pain or dyspnea. I think this chest pain was noncardiac. 2. Bradycardia: I reviewed the patient's telemetry suggest periods of sinus bradycardia and 1 episode where he may have had a junctional beat. This all occurred around 7 a.m.. Was reported to have be having some discomfort at that point in time. He does not recall feeling dizzy or lightheaded. He does not endorse symptoms of dizziness, lightheadedness and has never had syncope. I do not think this represents a pathologic entity. His conduction otherwise appears to be normal. He is accustomed to exercising without limiting symptoms. He is scheduled for stress test later today and we will monitor his heart rate response. These episodes of bradycardia do not appear to produce symptoms and require no additional evaluation in the absence of symptoms. 3. Lipids: Based on his current lipid profile and lack of additional risk factors he likely does not benefit from addition of aspirin or statin therapy. 4. Aortic root dilation: This was measured 4.2 centimeters on his echocardiogram. This is slightly enlarged although he has a large gentleman. He appeared to have normal aortic root size on his recent CT scan. I think for completeness sake this could be followed up in 1 years time with another echocardiogram.
--- NOTE | 2017-09-23 14:22 | Discharge Summary ---
Discharge Summary Date of Service Sep 23, 2017. Discharge Summary Admission Date: Sep 22, 2017 at 20:40 Discharge Date: Sep 23, 2017 Discharge Disposition: Home Principal Diagnosis: Musculoskeletal chest pain Immunizations: Have You Had Influenza Vaccine: Yes History of Tetanus Vaccine?: Yes History of Pneumococcal: Yes History of Hepatitis B Vaccine: Yes Procedures: Normal stress test Echo Interpretation Summary * Name: CARL WAGNER Study Date: 09/23/2017 06:39 AM BP: 110/65 mmHg * Patient Location: [facility]\S\15\S\1 HR: 45 * : 1960 (M/d/yyyy) Gender: Male Height: 73 in * Age: 56 yrs Ethnicity: [place] Weight: 275 lb * Ordering Physician: Yennifer Webster. * Referring Physician: Self, Referred * Performed By: Rhonda Larsen RCS * * Reason For Study: Chest Pain * BSA: 2.5 m2 * -- Conclusions -- * Left ventricular systolic function is normal. * Borderline left atrial enlargement. * Mild aortic regurgitation. * Mild aortic root dilatation. Procedure Details * A complete two-dimensional transthoracic echocardiogram was performed (2D, M-mode, Doppler and color flow Doppler). Left Ventricle * The left ventricle is normal in size. * There is normal left ventricular wall thickness. * Left ventricular systolic function is normal. * Ejection Fraction = 55-60%. * The left ventricular wall motion is normal. Right Ventricle * The right ventricle is normal in size and function. * The right ventricular systolic function is normal as assessed by tricuspid annular plane systolic excursion (TAPSE) (normal >1.5 cm). Atria * Borderline left atrial enlargement. * Right atrial size is normal. Mitral Valve * The mitral valve leaflets appear normal. There is no evidence of stenosis, fluttering, or prolapse. * Significant mitral regurgitation is absent. Tricuspid Valve * The tricuspid valve is not well visualized, but is grossly normal. * Significant tricuspid regurgitation is absent. Aortic Valve * The aortic valve is normal in structure and function. * No hemodynamically significant valvular aortic stenosis. * Mild aortic regurgitation. Great Vessels * Mild aortic root dilatation. Pericardium/Pleural * There is no pericardial effusion. ABDOMEN AND PELVIS CT WITHOUT CONTRAST CT DOSE: 1404.91 mGy.cm HISTORY: ERROL, generalized abdominal PAIN, LEFT SHOULDER PAIN TECHNIQUE: Multiaxial CT images of the abdomen and pelvis were performed without contrast. A dose lowering technique was utilized adhering to the principles of ALARA. COMPARISON STUDY: Chest CTA 09/22/2017. FINDINGS: The lung bases are clear. No fractures within the visualized osseous structures. Small fat-containing umbilical hernia. Small fat-containing bilateral inguinal hernias. A 13 mm hypodense lesion within the right hepatic lobe. This is incompletely characterized on this noncontrast study but favors a cyst. The unenhanced gallbladder, spleen, adrenal glands, pancreas, and kidneys are unremarkable. Residual intravenous contrast within the urinary system. No hydronephrosis. No bladder wall thickening. The bladder is mildly distended. No retroperitoneal lymphadenopathy. Suboptimal evaluation for bowel pathology due to the lack of intravenous and oral contrast. However, there is no definite bowel wall thickening or obstruction. Colonic diverticulosis. No evidence for diverticulitis. Normal appendix. IMPRESSION: 1. No bowel wall thickening or obstruction. 2. Normal appendix. 3. Colonic diverticulosis. 4. Residual contrast within the urinary system/bladder from the prior chest CTA. The bladder is mildly distended. CHEST CTA for PULMONARY ARTERIES CT DOSE: 746.24 mGy.cm HISTORY: Atypical chest pain. Short of breath. TECHNIQUE: Multiaxial CT images of the chest were performed following the intravenous administration of contrast to evaluate the pulmonary arteries. Maximal intensity projection images were also obtained. A dose lowering technique was utilized adhering to the principles of ALARA. COMPARISON STUDY: Chest 09/22/2017. FINDINGS: No pleural or pericardial effusions. The heart is top normal in size. Mild calcified plaque within the coronary arteries. The aorta is normal in course and caliber. No mediastinal or hilar lymphadenopathy. No suspicious lytic or blastic osseous lesions. No pneumothorax. The central airways are patent. The lungs are clear. IMPRESSION: No evidence for pulmonary embolus. CHEST ONE VIEW PORTABLE HISTORY: Atypical Chest pain COMPARISON: Chest 10/19/2014. FINDINGS: The lungs are clear. Cardiac silhouette is normal in size. No pleural effusions. No pneumothorax. IMPRESSION: No acute process. Consultations: Dr. Hernandez from cardiology Medication Reconciliation Continued Medications: Multiple Vitamin (Multivitamin) 1 Tab Tab 1 TAB PO DAILY, TAB Discharge Exam ROS Constitutional: no chills, aches, sweats or fever Respiratory: no sob,cough, sputum, or wheezing Cardiac: no chest pain, palpitations, edema, orthopnea or lightheadedness GI: no abdominal pain, nausea, vomiting, diarrhea or constipation : no dysuria or hesitancy Extremities: neck pain this am Skin: no rash All other systems reviewed and negative PE General: no distress Eyes: normal inspection, PERLL Respiratory: chest non tender, clear to auscultation, normal breath sounds, no respiratory distress, no accessory muscle use Cardiac: regular rate and rhythm, no rub or gallop, no murmur, no edema, no jvd GI/: active bowel sounds, no abd pain or tenderness, soft, non distended Extremities: normal range of motion, normal strength, non tender Neuro/Psych: alert and oriented x 3, normal mood and affect Skin: normal color, dry Hospital Course Mr. Wagner presented for after an episode of deep shoulder pain woke patient up from sleep last night. No CP/palpitations/heart racing/diaphoresis. Pain not exacerbated with movement. The following morning while laying on the couch he experienced chest tightness/pain with associated palpitations and pleurisy. Pain felt with cough as well. Experienced some nausea, lightheaded/dizziness and numbness in hands bilaterally upon arrival to ED No changes in exercise tolerance. No pain radiation into arm, jaw or back. No fevers, chills sweats. No diaphoresis. No trauma, works out at the gym 5x/week - normal routine, no new changes. Intermittent history of indigestion over the last few weeks This morning he had some brief neck/shoulder pain relieved with 1 nitro. Around the same time he experienced some asymptomatic bradycardia on the monitor with a possible junctional beat. 56 M with no significant personal or family history of cardiac issues presents to ED for 2 episodes of CP at rest and admitted for CP rule out Chest pain - monitored on telemetry - sinus ayleen in the 50s except as above - Serial trops neg x 3 - Echo w/o WMA, EF 55-60% - normal stress echo - Aspirin - not necessary for after discharge as chest pain does not appear cardiac - consulted with cardiology - do not feel chest pain is cardiac, bradycardia this morning may have been vasovagal response to musculoskeletal shoulder pain Hypokalemia - K 3.1 on admission - replaced Elevated creatinine - 1.45 on admission - 1.25 today - No previous BMP to compare - Encourage PO fluid intake - CT abd/pelv negative for kidney abnormalities - follow up outpatient GERD - Ranitidine 150mg BID PRN indigestion - did not require any inpatient Repeat prp 09/25 Total Time Spent: Greater than 30 minutes This includes examination of the patient, discharge planning, medication reconciliation, and communication with other providers. Discharge Instructions Please refer to the electronic Patient Visit Report (Discharge Instructions) for additional information. Follow-Up f/u pcp in about a week prp Saturday Additional Copies To Rinku Whaley DO
--- NOTE | 2017-09-23 14:23 | Discharge Instructions ---
Discharge Instructions Date of Service Sep 23, 2017. Admission Reason for Admission: Chest Pain Discharge Discharge Diagnosis / Problem: Chest pain Discharge Goals Goal(s): Decrease discomfort Activity Recommendations Activity Limitations: resume your previous activity . Instructions / Follow-Up Instructions / Follow-Up You should follow up with your primary care provider in about a week. Please have blood work done Saturday or , results will go to your primary care provider Your pain appears to be musculoskeletal in nature and not cardiac as you had a negative stress test, normal echocardiogram and blood work did not show excess strain on the heart. Current Hospital Diet Patient's current hospital diet: Regular Diet Discharge Diet Recommended Diet: Regular Diet Procedures Procedures Performed: Echocardiogram Stress test Pending Studies Studies pending at discharge: no Laboratory Results Lipid Panel Test 09/23/17 02:16 Range/Units Triglycerides Level 139 0-150 mg/dl Cholesterol Level 172 0-200 mg/dl HDL Cholesterol 44 mg/dl Cholesterol/HDL Ratio 3.9 LDL Cholesterol, Calculated 100 mg/dl Last 24 Hours Test 09/22/17 16:30 09/22/17 16:34 09/22/17 17:19 09/22/17 20:46 White Blood Count 11.72 K/uL Red Blood Count 4.80 M/uL Hemoglobin 15.9 g/dL Hematocrit 42.9 % Mean Corpuscular Volume 89.4 fL Mean Corpuscular Hemoglobin 33.1 pg Mean Corpuscular Hemoglobin Concent 37.1 g/dl Platelet Count 224 K/uL Mean Platelet Volume 10.4 fL Neutrophils (%) (Auto) 69.4 % Lymphocytes (%) (Auto) 20.1 % Monocytes (%) (Auto) 9.3 % Eosinophils (%) (Auto) 0.9 % Basophils (%) (Auto) 0.1 % Neutrophils # (Auto) 8.13 K/uL Lymphocytes # (Auto) 2.36 K/uL Monocytes # (Auto) 1.09 K/uL Eosinophils # (Auto) 0.11 K/uL Basophils # (Auto) 0.01 K/uL RDW Standard Deviation 39.9 fL RDW Coefficient of Variation 12.4 % Immature Granulocyte % (Auto) 0.2 % Immature Granulocyte # (Auto) 0.02 K/uL Sodium Level 137 mmol/L Potassium Level 3.1 mmol/L Chloride Level 103 mmol/L Carbon Dioxide Level 22 mmol/L Anion Gap 12.0 mmol/L Blood Urea Nitrogen 16 mg/dl Creatinine 1.45 mg/dl Est Creatinine Clear Calc Drug Dose 78.8 ml/min Estimated GFR () 62.0 Estimated GFR (Non- 53.5 BUN/Creatinine Ratio 11.0 Random Glucose 107 mg/dl Calcium Level 9.4 mg/dl Magnesium Level 1.8 mg/dl Total Bilirubin 1.3 mg/dl Aspartate Amino Transf (AST/SGOT) 20 U/L Alanine Aminotransferase (ALT/SGPT) 30 U/L Alkaline Phosphatase 46 U/L Total Creatine Kinase 266 U/L Creatine Kinase MB 1.2 ng/ml Creatine Kinase MB Ratio 0.5 Total Protein 8.4 gm/dl Albumin 4.4 gm/dl Globulin 4.0 gm/dl Albumin/Globulin Ratio 1.1 Lipase 108 U/L Thyroid Stimulating Hormone (TSH) 0.907 uIu/ml Hepatitis C Antibody Screen NEG Bedside D-Dimer 296 ng/mlFEU Bedside Troponin I < 0.030 ng/ml Urine Color YELLOW Urine Appearance CLEAR Urine pH >= 9.0 Urine Specific [place] 1.007 Urine Protein NEG Urine Glucose (UA) NEG Urine Ketones TRACE Urine Occult Blood NEG Urine Nitrite NEG Urine Bilirubin NEG Urine Urobilinogen NEG Urine Leukocyte Esterase NEG Troponin I < 0.015 ng/ml Test 09/23/17 02:16 09/23/17 11:08 White Blood Count 7.59 K/uL Red Blood Count 4.23 M/uL Hemoglobin 13.8 g/dL Hematocrit 38.5 % Mean Corpuscular Volume 91.0 fL Mean Corpuscular Hemoglobin 32.6 pg Mean Corpuscular Hemoglobin Concent 35.8 g/dl RDW Standard Deviation 41.6 fL RDW Coefficient of Variation 12.6 % Platelet Count 178 K/uL Mean Platelet Volume 10.2 fL Sodium Level 139 mmol/L Potassium Level 3.7 mmol/L Chloride Level 105 mmol/L Carbon Dioxide Level 28 mmol/L Anion Gap 6.0 mmol/L Blood Urea Nitrogen 15 mg/dl Creatinine 1.25 mg/dl Est Creatinine Clear Calc Drug Dose 91.2 ml/min Estimated GFR () 74.1 Estimated GFR (Non- 64.0 BUN/Creatinine Ratio 11.8 Random Glucose 104 mg/dl Calcium Level 8.6 mg/dl Troponin I < 0.015 ng/ml Triglycerides Level 139 mg/dl Cholesterol Level 172 mg/dl HDL Cholesterol 44 mg/dl LDL Cholesterol, Calculated 100 mg/dl VLDL Cholesterol, Calculated 28 mg/dl Cholesterol/HDL Ratio 3.9 Lyme Disease IgG Antibody NEG Lyme Disease IgM Antibody NEG Medical Emergencies . Who to Call and When: Medical Emergencies: If at any time you feel your situation is an emergency, please call 911 immediately. . Non-Emergent Contact Non-Emergency issues call your: Primary Care Provider Call Non-Emergent contact if: you have any medication questions . . "Provider Documentation" section prepared by Ester Berrios. . VTE Core Measure Inpt VTE Proph given/why not?: SCD's
[2017-09-23 14:28] VITALS: BP 130/73; PULSE 47; TEMP 36.6; O2SAT 100
--- NOTE | 2017-09-23 14:36 | EXERCISE STRESS ECHO ---
*NOTICE TO RECEIVING [employer] AGENCY This information is strictly Confidential and protected under [place] law. [place] law prohibits you from making any further disclosure of this information unless further disclosure is expressly permitted by the written consent of the person to whom it pertains or is authorized by law. A general authorization for the release of medical or other information is not sufficient for this purpose. Hospital accepts no responsibility if the information is made available to any other person, INCLUDING THE PATIENT. Interpretation Summary * Name: CARL WAGNER Study Date: 09/23/2017 01:01 PM BP: 122/64 mmHg * Patient Location: .2T\S\E215\S\1 HR: 52 * : 1960 (M/d/yyyy) Gender: Male Height: 73 in * Age: 56 yrs Ethnicity: [place] Weight: 271 lb * Ordering Physician: Niko Hernandez * Referring Physician: Self, Referred * Performed By: Rhonda Larsen RCS * * Reason For Study: Chest Pain * BSA: 2.4 m2 * -- Conclusions -- * Normal exercise echocardiogram without evidence of inducible ischemia * Hypertensive response to exercise Procedure Details * ECHOEX, CPT #93942 Left Ventricular Findings with Stress * Baseline EKG was normal sinus rhythm There are no significant ST or T-wave changes during exercise or recovery Baseline echocardiogram demonstrated normal LV systolic function with normal wall motion There was normal augmentation of all lynn without development of wall motion abnormalities at peak exertion No symptoms reported during the test There was a hypertensive response to exercise Overall heart rate yana slowly There was normal heart rate recovery Beck treadmill score: 13 (low risk) Stress Parameters * Normal baseline electrocardiogram. * Stress ECG: No ST changes. No arrhythmias. * The stress portion of this study was personally supervised by the undersigned interpreting physician. * Rest heart rate was '52' BPM. * Rest blood pressure was '122/64' * Maximum heart rate achieved was 139 bpm. * Maximum heart rate was 84 % of maximum age-predicted heart rate. * Maximum blood pressure was '212/85' * Total exercise time was '13:01' * Maximum exercise MET level achieved was '15.4' METS * Maximum treadmill speed was '5.1' miles per hour. * Maximum treadmill elevation was '18'% grade. * Exercise was terminated due to 'fatigue' Left Ventricular Findings with Stress * Normal exercise echocardiogram without evidence of inducible ischemia Hypertensive response to exercise
== END 2017-09-23 16:11 | disposition home or self-care (01) ==
LOC: C.EDB 15:29 → C.2T 20:40
PROVIDERS: ADMIT Hospitalist; ATTEND Hospitalist
DX: R07.89 Other chest pain (principal); Z87.891 Personal history of nicotine dependence

== ENCOUNTER → 2017-09-26 | Outpatient (CLI) | payer OTHER ==
[~2017-09-26] MED LIST: MULTTAB58 PO
--- NOTE | 2017-09-26 17:38 | DIAGNOSTIC IMAGING REPORT ---
MRI OF THE BRAIN WITHOUT CONTRAST CLINICAL HISTORY: Right facial numbness and tingling. COMPARISON STUDY: None. TECHNIQUE: Utilizing a 1.5 Key[place] magnet and dedicated coil, multiplanar, multiecho imaging of the brain was performed without IV contrast. FINDINGS: There are no foci of restricted diffusion. No acute intracranial hemorrhage, midline shift or mass effect is present. Brain volume is normal. Ventricular system is normal. Basilar cisterns are patent. There are no extra-axial collections. Flow-voids for the major intracranial vessels are present. There is no intracranial mass on this unenhanced exam. Orbits are unremarkable. Sinuses and mastoid air cells are within normal limits. There are no foci of significant signal abnormality within the brain parenchyma. IMPRESSION: Unremarkable unenhanced MRI of the brain. Electronically signed by: Jerry Clark M.D. 09/26/2017 5:36 PM Dictated Date/Time: 09/26/2017 5:33 PM
== END | disposition home or self-care (01) ==
PROVIDERS: ATTEND Psychiatry & Neurology Neurology
DX: R20.0 Anesthesia of skin (principal); R20.2 Paresthesia of skin

== ENCOUNTER → 2017-10-01 | Outpatient (CLI) | payer OTHER ==
[2017-10-01 14:19] LABS: BLOOD UREA NITROGEN 12 mg/dl (7-18); CALCIUM 9.3 mg/dl (8.5-10.1); CARBON DIOXIDE 29 mmol/L (21-32); CREATININE 1.06 mg/dl (0.60-1.40); GLUCOSE 91 mg/dl (70-99); SODIUM 137 mmol/L (136-145)
== END | disposition home or self-care (01) ==
LOC: C.LABBC 10:10
PROVIDERS: ATTEND Psychiatry & Neurology Neurology
DX: E87.6 Hypokalemia (principal); R20.0 Anesthesia of skin

== ENCOUNTER → 2018-04-14 | Day surgery (SDC) | payer OTHER ==
[2018-04-08 16:20] VITALS: Ht 185.4 cm; Wt 122.7 kg
[~2018-04-14] VITALS: Ht 185.4 cm; Wt 122.7 kg
[~2018-04-14] MED LIST changes: +PROPOFOL IV EMULSION 10 MG/ML 20 ML VIAL ONE; +SODIUM CHLORIDE 0.9% 500ML 500 ML IV ONE
--- NOTE | 2018-04-14 10:26 | Endo History and Physical ---
History & Physical Date of Service: Apr 14, 2018. Chief Complaint: Screening Referring Physician: Dr. Whaley History of Present Illness 57 yo CM who presents for screening colonoscopy. Past Surgical History Hx Cardiac Surgery: No Hx Internal Defibrillator: No Hx Pacemaker: No Hx Abdominal Surgery: No Hx of Implantable Prosthesis: No Hx Post-Op Nausea and Vomiting: No Hx Cancer Surgery: No Hx Thoracic Surgery: No Hx Orthopedic: No Hx Urinary Tract Surgery: No Family History Colon CA Social History Smoking Status: Never Smoker Hx Substance Use: No Hx Alcohol Use: Yes (1-2 GLASSES WINE DAILY) Allergies Coded Allergies: No Known Allergies (Unverified , 04/08/18) Current Medications Reported Home Medications Medications Dose Route/Sig Max Daily Dose Days Date Category Multivitamin (Multiple Vitamin) 1 Tab Tab 1 Tab PO DAILY 09/22/17 Reported Vital Signs Weight (Kilograms): 122.73 Height (Feet): 6 Height (Inches): 1 Date Time Temp Pulse Resp B/P (MAP) Pulse Ox O2 Delivery O2 Flow Rate FiO2 04/14/18 10:15 36.7 62 16 148/93 (111) 96 Room Air Physical Exam General Appearance: WD/WN, no apparent distress Respiratory/Chest: Auscultation: breath sounds normal Cardiovascular: Heart Auscultation: RRR Abdomen: Bowel Sounds: normal Inspection & Palpation: soft, non-distended, no tenderness, guarding & rebound Assessment and Plan Assessment: 57 yo CM who presents for screening colonoscopy. Plan: Proceed with colonoscopy.
--- NOTE | 2018-04-14 11:06 | Discharge Instructions ---
Endoscopy Patient Instructions Date / Procedure(s) Performed Apr 14, 2018. Colonoscopy Allergy Information Coded Allergies: No Known Allergies (Unverified , 04/08/18) Discharge Date / Findings Apr 14, 2018. Colon polyp Diverticulosis Internal hemorrhoids Medication Instructions OK to resume all medications today as prescribed Reported Home Medications Medications Dose Route/Sig Max Daily Dose Days Date Category Multivitamin (Multiple Vitamin) 1 Tab Tab 1 Tab PO DAILY 09/22/17 Reported Provider Instructions Activity Restrictions - No exercising or heavy lifting for 24 hours. - Do not drink alcohol the day of the procedure. - Do not drive a car or operate machinery until the day after the procedure. - Do not make any important decisions or sign important papers in 24 hours after the procedure. Following Day: - Return to full activity which may include returning to work/school. Diet Start your diet with liquids and light foods (jello, soup, juice, toast). Then eat your usual diet if not nauseated. Treatment For Common After Affects For mild abdominal pain, bloating, or excessive gas: - Rest - Eat lightly - Lie on right side Follow-Up Information Follow-up with as scheduled Anesthesia Information What You Should Know You have had a procedure that required some medicine to reduce anxiety and discomfort. This treatment is called moderate sedation. After receiving the treatment, you may be sleepy, but you will be able to breathe on your own. The effects of the treatment may last for several hours. Follow these instructions along with Activity/Diet recommendations noted above: * Do NOT do anything where dizziness or clumsiness would be dangerous. * Rest quietly at home today, then you can be up and about tomorrow. * Have a responsible person stay with you the rest of today. * You may have had an I.V. today. If so, you may take the dressing off later today. Recommendations Call your doctor if: * Trouble breathing * Continuous vomiting for more than 24 hours * Temperature above 101 degrees * Severe abdominal pain or bloating * Pain not relieved by pain medicine ordered * There is increased drainage or redness from any incision * A large amount of rectal bleeding greater than 2-3 tablespoons. (If you had a polyp/s removed or have hemorrhoids, a small amount of blood - from the rectum is to be expected.) * You have any unanswered questions or concerns. IN THE EVENT OF A SERIOUS EMERGENCY, GO TO THE NEAREST EMERGENCY ROOM Your discharge instructions were prepared by provider Dayo Vizcarra. Patient Instructions Signature Page Ila Rivera Patient (or Guardian) Signature/Date: I have read and understand the instructions given to me by my caregivers. Caregiver/RN/Doctor Signature/Date: The above-named patient and/or guardian has received patient instructions on this date. + Original Patient Signature Page (only) stays with chart. Please make copy for patient.
--- NOTE | 2018-04-14 11:09 | Anesthesiology Progress Note ---
Anesthesia Post Op Note Date & Time Apr 14, 2018 at 11:09 Vital Signs Pain Intensity: 0 Vital Signs Past 12 Hours Date Time Temp Pulse Resp B/P (MAP) Pulse Ox O2 Delivery O2 Flow Rate FiO2 04/14/18 11:01 36.5 57 16 111/75 (87) 94 Room Air 04/14/18 10:15 36.7 62 16 148/93 (111) 96 Room Air Notes Mental Status: alert / awake / arousable, participated in evaluation Pt Amnestic to Procedure: Yes Nausea / Vomiting: adequately controlled Pain: adequately controlled Airway Patency, RR, SpO2: stable & adequate BP & HR: stable & adequate Hydration State: stable & adequate Anesthetic Complications: no major complications apparent
--- NOTE | 2018-04-14 11:09 | GI REPORT ---
Patient Name: Ila Rivera Procedure Date: 04/14/2018 10:08 AM Date of : 1960 Admit Type: Outpatient Age: 57 Gender: Male Attending MD: Dayo Vizcarra DO Procedure: Colonoscopy Providers: Dayo Vizcarra DO Referring MD: Rinku Whaley Indications: Family history of colon cancer Medicines: Monitored Anesthesia Care Complications: No immediate complications. Estimated Blood Loss: Estimated blood loss: none. Procedure: Pre-Anesthesia Assessment: - Prior to the procedure, a History and Physical was performed, and patient medications and allergies were reviewed. The patient's tolerance of previous anesthesia was also reviewed. The risks and benefits of the procedure and the sedation options and risks were discussed with the patient. All questions were answered, and informed consent was obtained. Prior Anticoagulants: The patient has taken no previous anticoagulant or antiplatelet agents. ASA Grade Assessment: III - A patient with severe systemic disease. After reviewing the risks and benefits, the patient was deemed in satisfactory condition to undergo the procedure. After I obtained informed consent, the scope was passed under direct vision. Throughout the procedure, the patient's blood pressure, pulse, and oxygen saturations were monitored continuously. The scope was introduced through the anus and advanced to the terminal ileum. The colonoscopy was performed without difficulty. The patient tolerated the procedure well. The quality of the bowel preparation was good. The terminal ileum, ileocecal valve, appendiceal orifice, and rectum were photographed. Findings: The perianal and digital rectal examinations were normal. A 3 mm polyp was found in the transverse colon. The polyp was sessile. The polyp was removed with a cold biopsy forceps. Resection and retrieval were complete. Multiple small-mouthed diverticula were found in the sigmoid colon. Non-bleeding internal hemorrhoids were found during retroflexion. The hemorrhoids were small. Impression: - One 3 mm polyp in the transverse colon, removed with a cold biopsy forceps. Resected and retrieved. - Diverticulosis in the sigmoid colon. - Non-bleeding internal hemorrhoids. Recommendation: - Resume previous diet. - Continue present medications. - Repeat colonoscopy for surveillance based on pathology results. - Return to primary care physician as previously scheduled. Dayo Vizcarra DO 04/14/2018 11:09:21 AM This report has been signed electronically. Note Initiated On: 04/14/2018 10:08 AM Number of Addenda: 0 I attest to the content of the Intraoperative Record and orders documented therein, exceptions below {[id number]}
[2018-04-14 11:31] VITALS: BP 124/85; PULSE 53; O2SAT 97
== END | disposition home or self-care (01) ==
LOC: C.GI 09:38
PROVIDERS: ATTEND Internal Medicine
DX: Z12.11 Encounter for screening for malignant neoplasm of colon (principal); K63.5 Polyp of colon; K64.8 Other hemorrhoids; G47.33 Obstructive sleep apnea (adult) (pediatric); K57.30 Diverticulosis of large intestine without perforation or abscess without bleeding; M19.90 Unspecified osteoarthritis, unspecified site; Z80.0 Family history of malignant neoplasm of digestive organs